=== PATIENT | male | born 1955 | race Caucasian/White ===

== ENCOUNTER 2024-12-16 07:06 | Day surgery (SDC) | payer OTHER, MEDICARE ==
[2024-12-16] MEDS ORDERED: NA CHLORIDE 0.9% 1,000 ML ONE (07:51)
[2024-12-16 08:11] LABS: Absolute Eosinophils 0.1 K/uL (0-0.5); Absolute Lymphocytes (CBC) 1.7 K/uL (0.7-4.9); Absolute Monocytes 0.6 K/uL (0.1-1.3); Absolute Neutrophil 4.3 K/uL (1.8-8.0); Basophils % 0.3 % (0-1.3); Eosinophils % 1.9 % (0-4.4); Hematocrit 31.1 % (39.6-49.0); Hemoglobin 10.7 g/dL (13.6-17.9); Lymphocytes % 24.9 % (15.3-44.8); MCH 31.7 pg (27.0-35.0); MCHC 34.6 g/dL (32.0-36.0); MCV 91.5 fL (80-100); MPV 7.6 fL (7.6-11.3); Monocytes % 9.2 % (3.3-12.3); Neutrophils % 63.7 % (41.7-73.7); Nucleated Red Blood Cells % 0.2 % (0-0); Platelets 254 thou/uL (152-406); RBC Red Blood Cell Count 3.39 M/uL (4.33-5.43)
[2024-12-16 08:12] LABS: PT Prothrombin Time 10.7 SECONDS (10-13.0); Protime INR 0.94
[2024-12-16 08:15] LABS: Anion Gap 10.2 mEq/L (5.0-15.0); Potassium 4.2 mEq/L (3.5-5.1)
[2024-12-16 08:26] VITALS: BMI 34.7
[2024-12-16] MEDS ORDERED: HYDRALAZINE HCL 20 MG/ML VIAL ONE (08:55)
[2024-12-16] MEDS ORDERED: FLUMAZENIL 0.1 MG/ML (5 mL VIAL) IV ONE (08:55)
[2024-12-16] MEDS ORDERED: FENTANYL CITR 100 MCG/2 ML ONE (08:56)
[2024-12-16] MEDS ORDERED: NALOXONE HCL 2 MG/2 ML VIAL ONE (08:56)
[2024-12-16] MEDS ORDERED: MIDAZOLAM HCL 2 MG/2 ML INJ ONE (08:56)
--- NOTE | 2024-12-16 12:47 | RAD REPORT ---
EXAMINATION: Renal Biopsy CT INDICATION: RENAL DISEASE Pre-procedure diagnosis: Renal failure Post-procedure diagnosis: Same as above. COMPLICATIONS: No immediate complications. PROCEDURE DETAILS: Consent: Informed consent for the procedure was obtained following discussion of the risks, benefits and alternatives with the patient. Time-out was performed prior to the procedure. Sedation: Moderate sedation (conscious sedation) Administered by: Nurse, or other independent traine d observer, with level of consciousness and vital signs continuously monitored. Total sedation administered: 2 mL Versed and 100 mcg Fentanyl. Total intra-service sedation time: 45 minutes. Biopsy: The area was prepped and draped in the usual sterile fashion. Initial scanning revealed . Loc al anesthesia was administered. Under CT guidance, an 18 gauge biopsy needle was advanced to the inferior left kidney and biopsy was performed. Number of specimens/passes: 2 Additional sampling description: None. Preliminary assessment of sample adequacy: Not applicable. The biopsy needle was removed and a sterile dressing was applied. Post-biopsy imaging findings: No immediate complications seen. Estimated blood loss: Less than 10 mL. IMPRESSION: Technically successful CT-guided biopsy of inferior left kidney.
[2024-12-16 14:50] VITALS: BP 178/71; TEMP 97; O2SAT 98
== END 2024-12-16 12:52 | disposition home or self-care (01) ==
LOC: DS 07:06
PROVIDERS: ATTEND Family Medicine
PROC: 0T913ZX Drainage of Left Kidney, Percutaneous Approach, Diagnostic (ICD-10-PCS; principal; 2024-12-16)
DX: N05.8 Unspecified nephritic syndrome with other morphologic changes (principal); N17.9 Acute kidney failure, unspecified; R80.1 Persistent proteinuria, unspecified
CPT/HCPCS: 85025; 80048; 36415; 85610; 82947; 88300; 85730; 50200; 77012; J2250; J3010; J7030; J0360; J2310

== ENCOUNTER 2025-01-22 16:32 | Emergency (ER) | payer OTHER, MEDICARE ==
--- OUTSIDE RECORDS SUMMARY | 2025-01-22 16:35 | XMS REPORT | Clinical Summary ---
Author Name Unknown Organization [facility] Address [address] [place] [address] Care Team Providers Care Vessel Operator Name Role Phone Remington Spaulding MD Unavailable [phone] Gary Kamara MD Unavailable [phone] Trell Hahn MD Primary Care Provider [phone] Pilar Bashir MD Unavailable [phone] Slick Avalos MD Unavailable [phone] Allergies No known active allergies Medications levothyroxine (SYNTHROID, LEVOTHROID) 75 mcg tablet Take 1 tablet (75 mcg) by mouth daily. 09/24/2019 Active metFORMIN (GLUCOPHAGE) 500 mg tablet Take 1 tablet (500 mg) by mouth 2 (two) times a day with meals. 09/24/2019 Active allopurinol (ZYLOPRIM) 100 mg tablet TK 2 TS PO D 01/06/2018 Active chlorthalidone (HYGROTON) 25 mg tablet 1 tablet (25 mg) daily. 08/21/2019 Active esomeprazole (NexIUM) 20 MG capsule Take 1 capsule (20 mg) by mouth every morning before breakfast. Active icosapent ethyl 1 gram cap TAKE 2 CAPSULES BY MOUTH TWICE A DAY WITH MEALS 11/28/2017 Active cholecalciferol , vitamin D3, (VITAMIN D3) 5,000 units tab tablet Take 1 tablet (5,000 Units) by mouth daily. 12/09/2019 Active magnesium oxide 400 mg magnesium tab Take 400 mg by mouth daily. 09/23/2019 Active hydrALAZINE (APRESOLINE) 50 mg tablet 2 tablets (100 mg) daily. 11/23/2020 Active semaglutide (Ozempic) 1 mg/dose (2 mg/1.5 mL) pnij Inject 1 mg under the skin once a week. Active losartan (COZAAR) 100 mg tablet Take 1 tablet (100 mg) by mouth at bedtime. Active amLODIPine (NORVASC) 5 mg tablet Take 1 tablet (5 mg) by mouth daily. Active Active Problems Problem Noted Date Diagnosed Date Umbilical hernia 08/15/2020 Erectile dysfunction following radical prostatec chrissy 08/15/2020 Adenocarcinoma of prostate 02/08/2020 Overview (02/08/2020): Added automatically from request for surgery [id number] Prostate cancer 10/29/2019 Overview (06/23/2020): Mandatory CMS ICD-10 2020 UPDATE Encounters Date Type Department Care Team Description 12/23/2024 9:30 AM CDT Telemedicine [facility] - Urology [id number] [address] Trell Hahn MD Nguyen, Amy A, APRN Prostate cancer (Primary Dx); Malignant neoplasm of prostate 12/23/2024 Travel 12/11/2024 Telephone [facility] - Urology [id number] [address] Keli Nicole MA after 01/23/2024 Surgical History Surgery Date Site/Laterality Comments APPENDECTOMY 09/23/1998 - 09/22/1999 FOOT NEUROMA SURGERY Right TONSILLECTOMY CA LAPS SURG [id number] RPBIC RAD W/NRV SPARING ROBOT 02/26/2020 Abdomen/N/A Procedure: ROBOTIC ASSISTED PROSTATECTOMY, RETROPUBIC RADICAL, INCLUDING NERVE SPARING; Surgeon: Trell Hahn MD; Location: MAIN OR; Service: UROLOGY CA LAPS SURG BILATERAL TOTAL PELVIC LMPHADECTOMY 02/26/2020 Bilateral Procedure: ROBOTIC ASSISTED PELVIC LYMPHADENECTOMY; Surgeon: Trell Hahn MD; Location: MAIN OR; Service: UROLOGY UMBILICAL HERNIA REPAIR 07/06/2021 Medical History Medical History Date Comments Hypertension 1978 Dependence on continuous pos itive airway pressure ventilation 2005 Gastric reflux 2014 Sexual dysfunction 2010 Arthritis 2015 Diabetes mellitus 2007 Prostate cancer 2019 s/p surgery, on surveillance Sleep apnea Hypothyroidism 2012 Former heavy tobacco smoker Chondrocalcinosis due to pyrophosphate crystals Hyperuricemia Autoimmune disease 2023 Family History Medical History Relation Name Comments Pancreatic cancer Brother Diabetes Father Hypertension Father Kidney failure Father Lung cancer Mother Sofia Tim age 84 Rheum arthritis Mother Sofia Tim Rheum arthritis Sister Liver disease Neg Hx Relation Name Status Comments Brother Father Mother Sofia Tim Sister Social History Tobacco Use Types Packs/Day Years Used Date Smoking Tobacco: Some Days Cigarettes 1.5 37 Started: 09/23/1972; Last attempted to quit: 09/23/2009 Cigars Started: 2009 Smokeless Tobacco: Never Tobacco Cessation:Ready to Q uit: Not Asked; Counseling Given: Not Answered Comments:currently using nicorette lozenges occasional cigars 1-2 week Alcohol Use Standard Drinks/Week Comments Yes 5 (1 standard drink = 0.6 oz pure alcohol) 3-4x/week. 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 Not on file Not on file Not on file Obstetrics History Plan of Treatment Health Maintenance Due Date Last Done Comments Pneumococcal Vaccine: 50+ Ye ars (1 of 2 - PCV) 1974 08/07/2023, 07/11/2023, 09/07/2020 COVID-19 Vaccine ( - 2023-2 5 season) 2025 07/07/2024, 07/11/2023, 12/01/2020, Additional history exists Influenza Vaccine Completed 07/14/2024, , 07/09/2022 Insurance MEDICARE PART A AND B AARP-SECONDARY ONLY MEDICARE PART A AND B AARP-SECONDARY ONLY Advance Directives Documents on File Type Date Recorded 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 Advance Directives: Living Will 02/26/2020 Directive to Physici ans and Family or Surrogates-Living Will Advance Directives: Living Will 02/26/2020 Directive to Physici ans and Family or Surrogates-Living Will Advance Directives: Living Will 02/26/2020 Directive to Physici ans and Family or Surrogates-Living Will Advance Directives: Medical Power of Paint Roller Covermaker 02/26/2020 Medical Power of Att orney Advance Directives: Medical Power of Paint Roller Covermaker 02/26/2020 Medical Power of Att orney Advance Directives: Medical Power of Paint Roller Covermaker 02/26/2020 Medical Power of Att orney * Full Code (Latest Code Status on File) Date Activated Date Inactivated Comments 02/26/2020 1:17 PM 02/27/2020 3:07 PM Care Teams Vessel Operator Relationship Specialty Start Date End Date Remington Spaulding MD [email or web address] PCP - External Primary Care Provider Internal Medicine 10/19/19 Gary Kamara MD PCP - External Follow Up A Urology 10/19/19 Trell Hahn MD [address] [place] [id number] [email or web address] PCP - General Urology 10/19/19 Pilar Bashir MD [address] [place] [id number] [email or web address] Consulting Physician Internal Medicine 02/19/20 Slick Avalos MD [address] [place] [id number] [email or web address] Consulting Physician Hematology 05/03/23
[2025-01-22] MEDS ORDERED: ONDANSETRON 4 MG/2 ML VIAL ONE (17:03)
[2025-01-22] MEDS ORDERED: NA CHLORIDE 0.9% 1,000 ML ONE (17:03)
[2025-01-22 17:12] LABS: Absolute Basophils 0.1 K/uL (0-0.5); Absolute Eosinophils 0.4 K/uL (0-0.5); Absolute Lymphocytes (CBC) 0.9 K/uL (0.7-4.9); Absolute Monocytes 0.7 K/uL (0.1-1.3); Absolute Neutrophil 4.3 K/uL (1.8-8.0); Basophils % 1.4 % (0-1.3); Eosinophils % 6.5 % (0-4.4); Hematocrit 31.4 % (39.6-49.0); Hemoglobin 11.2 g/dL (13.6-17.9); Lymphocytes % 13.7 % (15.3-44.8); MCH 31.5 pg (27.0-35.0); MCHC 35.7 g/dL (32.0-36.0); MCV 88.2 fL (80-100); MPV 6.8 fL (7.6-11.3); Monocytes % 10.9 % (3.3-12.3); Neutrophils % 67.5 % (41.7-73.7); Nucleated Red Blood Cells % 0.5 % (0-0); Platelets 209 thou/uL (152-406); RBC Red Blood Cell Count 3.56 M/uL (4.33-5.43); Red Cell Distribution Width 14.5 % (12.1-15.2)
[2025-01-22 17:17] LABS: Sqamous Epithelial None Seen /HPF (None Seen); Urine Bacteria None Seen /HPF (<20); Urine Bilirubin NEGATIVE (Negative); Urine Blood Trace (Negative); Urine Clarity Clear (Clear); Urine Color Colorless (Yellow); Urine Culture Reflex Order NOT NEEDED; Urine Glucose NEGATIVE (Negative); Urine Ketones NEGATIVE (Negative); Urine Microscopic Reflex YN ORDER UMIC; Urine Mucus Slight /HPF (None Seen); Urine Nitrite NEGATIVE (Negative); Urine Protein 2+ (Negative); Urine RBC <5 /HPF (None Seen); Urine Urobilinogen Normal (Normal); Urine WBC <5 /HPF (<5); Urine pH 7.5 (5.0-7.0)
[2025-01-22 17:29] LABS: Albumin 3.6 g/dL (3.4-5.0); Albumin/Globulin Ratio 1.1 (1.1-1.8); Anion Gap 14.5 mEq/L (5.0-15.0); Bilirubin Total 0.5 mg/dL (0.2-1.0); Globulin 3.3 g/dL (2.3-3.5); Potassium 4.5 mEq/L (3.5-5.1); Protein, Total 6.9 g/dL (6.4-8.2)
--- NOTE | 2025-01-22 17:55 | ER ---
Nurse's Notes [facility] Name: Yared Tim Age: 69 yrs Sex: Male : 1955 Arrival Date: 01/22/2025 Time: 16:32 Bed 5 Private MD: Diagnosis: Nausea with vomiting, unspecified Presentation: 01/22 16:38 Chief complaint: Spouse and/or significant other states: had a transfusion (rituximab) ap3 on Saturday01/20/25 at the cancer center. patient was doing well until this afternoon. patient's reports that this morning patients vital signs were within normal limits, but this afternoon patient was hypertensive and had not urinated until this afternoon, which was reported as "dark and frothy". patient denies any pain at this time, but reports feeling "tingly and weird". Patient reports vomiting once. Coronavirus screen: At this time, the client does not indicate any symptoms associated with coronavirus-19. Ebola Screen: No symptoms or risks identified at this time. Initial Sepsis Screen: Does the patient meet any 2 criteria? No. Patient's initial sepsis screen is negative. Does the patient have a suspected source of infection? No. Patient's initial sepsis screen is negative. Risk Assessment: Do you want to hurt yourself or someone else? Patient reports no desire to harm self or others. Onset of symptoms was January 22, 2025. 16:38 Method Of Arrival: Ambulatory ap3 16:38 Acuity: LIANA 2 ap3 Triage Assessment: 16:42 General: Appears comfortable, Behavior is calm, cooperative, appropriate for age, ap3 Reports fatigue for. Pain: Denies pain. Neuro: Level of Consciousness is awake, alert, obeys commands, Oriented to person, place, time, situation. Cardiovascular: Patient's skin is warm and dry. Respiratory: Airway is patent Respiratory effort is even, unlabored, Respiratory pattern is regular, symmetrical. GI: Reports vomiting. Historical: - Allergies: 16:40 nystatin; ap3 - PMHx: 16:40 Diabetes mellitus; Hypertensive disorder; ap3 - Immunization history:: Client reports receiving the 2nd dose of the Covid vaccine, Flu vaccine is up to date. - Infectious Disease History:: Denies. - Social history:: Smoking status: Patient denies any tobacco usage or history of. Screenin:43 Abuse screen: Denies threats or abuse. Nutritional screening: No deficits noted. ap3 Tuberculosis screening: No symptoms or risk factors identified. Assessment: 18:09 Reassessment: Patient is alert, oriented x 3, equal unlabored respirations, skin aa5 warm/dry/pink. Vital Signs: 16:38 BP 174 / 78; Pulse 63; Resp 17; Temp 97.6; Pulse Ox 100% ; Weight 119.75 kg; Height 6 ap3 ft. 2 in. ; Pain 0/10; 18:08 BP 147 / 69; Pulse 65; Resp 16 S; Pulse Ox 100% on R/A; aa5 16:38 Body Mass Index 33.90 (119.75 kg, 187.96 cm) ap3 16:38 Pain Scale: Adult ap3 ED Course: 16:34 Patient arrived in ED. mr 16:35 Sara Santiago MD is Attending Physician. gb1 16:40 Triage completed. ap3 16:43 Arm band placed on right wrist. ap3 16:44 Luc Quijano, JOSE E is Primary Nurse. bp 18:09 No provider procedures requiring assistance completed. IV discontinued, intact, aa5 bleeding controlled, No redness/swelling at site. Pressure dressing applied. Administered Medications: 17:00 Drug: NS 0.9% IV 1000 ml IV at 1 bolus Per protocol; to be given as a bolus over 60 bp minutes Route: IV; Rate: 1 bolus; Site: right forearm; 18:08 Follow up: IV Status: Completed infusion; IV Intake: 1000ml aa5 17:00 Drug: Ondansetron IVP 4 mg IVP once; over 2 minutes Route: IVP; Site: right forearm; bp 18:08 Follow up: Response: No adverse reaction aa5 Intake: 18:08 IV: 1000ml; Total: 1000ml. aa5 Outcome: 17:55 Discharge ordered by . gb1 18:09 Discharged to home ambulatory, with family, aa5 18:09 Condition: stable 18:09 Discharge instructions given to patient, family, Instructed on discharge instructions, follow up and referral plans. medication usage, Demonstrated understanding of instructions, follow-up care, medications, Prescriptions given X 1, 18:09 Patient left the ED. aa5 Signatures: Julia Darby, Frankie David Debo Jordan RN RN aa5 Luc Quijano RN RN bp Crystal Mijares RN RN ap3 Pamela, MD MINERVA Ruiz gb1 Corrections: (The following items were deleted from the chart) 16:42 16:38 Chief complaint: Spouse and/or significant other states: had a transfusion on ap3 Saturday01/20/25 at the cancer center. patient was doing well until this afternoon. patient's reports that this morning patients vital signs were within normal limits, but this afternoon patient was hypertensive and had not urinated until this afternoon, which was reported as "dark and frothy". patient denies any pain at this time, but reports feeling "tingly and weird". Patient reports vomiting once. ap3
--- NOTE | 2025-01-22 17:55 | EDPHYS ---
Physician Documentation [facility] Name: Yared Tim Age: 69 yrs Sex: Male : 1955 Arrival Date: 01/22/2025 Time: 16:32 Bed 5 Private MD: ED Physician Sara Santiago HPI: 01/22 17:50 This 69 yrs old Male presents to ER via Ambulatory with complaints of gb1 Fatigue, Vomiting, Urinary Problem. 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 He denies any fever chills or abdominal pain. He denies any chest pain or shortness of breath. He has a history of diabetes and hypertension as well. He is here with his at the bedside.. Historical: - Allergies: 16:40 nystatin; ap3 - PMHx: 16:40 Diabetes mellitus; Hypertensive disorder; ap3 - Immunization history:: Client reports receiving the 2nd dose of the Covid vaccine, Flu vaccine is up to date. - Infectious Disease History:: Denies. - Social history:: Smoking status: Patient denies any tobacco usage or history of. Exam: 17:50 Constitutional: This is a well developed, well nourished patient who is awake, alert, gb1 and in no acute distress. Head/Face: Normocephalic, atraumatic. Eyes: Pupils equal round and reactive to light, extra-ocular motions intact. Lids and lashes normal. Conjunctiva and sclera are non-icteric and not injected. Cornea within normal limits. Periorbital areas with no swelling, redness, or edema. ENT: Nares patent. No nasal discharge, no septal abnormalities noted. Tympanic membranes are normal and external auditory canals are clear. Oropharynx with no redness, swelling, or masses, exudates, or evidence of obstruction, uvula midline. Mucous membranes moist. Neck: Trachea midline, no thyromegaly or masses palpated, and no cervical lymphadenopathy. Supple, full range of motion without nuchal rigidity, or vertebral point tenderness. No Meningismus. Chest/axilla: Normal chest wall appearance and motion. Nontender with no deformity. No lesions are appreciated. Cardiovascular: Regular rate and rhythm with a normal S1 and S2. No gallops, murmurs, or rubs. Normal PMI, no JVD. No pulse deficits. Respiratory: Lungs have equal breath sounds bilaterally, clear to auscultation and percussion. No rales, rhonchi or wheezes noted. No increased work of breathing, no retractions or nasal flaring. Abdomen/GI: Soft, non-tender, with normal bowel sounds. No distension or tympany. No guarding or rebound. No evidence of tenderness throughout. Back: No spinal tenderness. No costovertebral tenderness. Full range of motion. Skin: Warm, dry with normal turgor. Normal color with no rashes, no lesions, and no evidence of cellulitis. MS/ Extremity: Pulses equal, no cyanosis. Neurovascular intact. Full, normal range of motion. Vital Signs: 16:38 BP 174 / 78; Pulse 63; Resp 17; Temp 97.6; Pulse Ox 100% ; Weight 119.75 kg; Height 6 ap3 ft. 2 in. ; Pain 0/10; 18:08 BP 147 / 69; Pulse 65; Resp 16 S; Pulse Ox 100% on R/A; aa5 16:38 Body Mass Index 33.90 (119.75 kg, 187.96 cm) ap3 16:38 Pain Scale: Adult ap3 MDM: 16:43 Medical Screening Exam initiated gb1 17:50 Data reviewed: vital signs, nurses notes, lab test result(s), CBC, electrolytes, gb1 urinalysis. ED course: 69-year-old male with history of glomerulonephritis under the care of Dr. Davis. Here with nausea and vomiting at home after smoking a cigar. I suspect with salt intake acute decreased and patient not hydrating well they likely had a vasovagal episode. Patient here is vitally stable with a blood pressure of 140/70 in the room he is receiving an IV with normal saline and has normal electrolytes. His creatinine a couple days ago I did review in the room was 1.94 and today it is 2.1. No sign of any findings in his urinalysis. 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 Patient is clinically improved since arrival.. 01/22 16:45 Order name: CBC with Diff; Complete Time: 17:30 gb1 01/22 16:45 Order name: CMP; Complete Time: 17:30 gb1 01/22 16:45 Order name: UA Rfx Raza Cult if indicated; Complete Time: 17:30 1 01/22 16:45 Order name: IV Saline Lock; Complete Time: 17:00 gb1 01/22 16:45 Order name: Labs collected and sent; Complete Time: 17:00 gb1 Administered Medications: 17:00 Drug: NS 0.9% IV 1000 ml IV at 1 bolus Per protocol; to be given as a bolus over 60 bp minutes Route: IV; Rate: 1 bolus; Site: right forearm; 18:08 Follow up: IV Status: Completed infusion; IV Intake: 1000ml aa5 17:00 Drug: Ondansetron IVP 4 mg IVP once; over 2 minutes Route: IVP; Site: right forearm; bp 18:08 Follow up: Response: No adverse reaction aa5 Disposition Summary: 01/22/25 17:55 Discharge Ordered Notes: Location: Home gb1 Condition: Stable gb1 Diagnosis - Nausea with vomiting, unspecified gb1 Followup: gb1 - With: Private Physician - When: - Reason: Re-evaluation by your physician Discharge Instructions: - Discharge Summary Sheet gb1 - Nausea, Adult gb1 Forms: - Medication Reconciliation Form gb1 - Antibiotic Education gb1 - Prescription Opioid Use gb1 - Patient Portal Instructions gb1 - Leadership Thank You Letter gb1 Prescriptions: - Zofran 4 mg Oral Tablet - take 1 tablet ORAL route every 12 hours As needed; 20 tablet; Refills: 0, gb1 Product Selection Permitted Signatures: Dispatcher [employer] EDLuc Parada, RN Crystal Mast RN RN ap3 Sara Santiago MD MD gb1 Debo Jordan RN aa5 Corrections: (The following items were deleted from the chart) 16:46 16:46 CBC+H.LAB.BRZ ordered. EDMS EDMS 16:46 16:46 COMPREHENSIVE METABOLIC PANEL+C.LAB.BRZ ordered. EDMS EDMS 16:46 16:46 UA Rfx Raza Cult if indicated+U.LAB.BRZ ordered. EDMS EDMS
[2025-01-22 18:29] VITALS: TEMP 97.6; O2SAT 100
[2025-01-22 18:31] VITALS: BP 147/69
== END 2025-01-22 18:09 | disposition home or self-care (01) ==
LOC: ER 16:32
DX: R11.2 Nausea with vomiting, unspecified (principal); R53.83 Other fatigue; E11.9 Type 2 diabetes mellitus without complications; I10 Essential (primary) hypertension
CPT/HCPCS: 96361; 85025; 81001; 36415; 80053; 96374; 99284; J2405; J7030